=== PATIENT | male | born 1995 | race Caucasian/White ===

== ENCOUNTER 2021-01-23 11:01 | Emergency (ER) | payer SELFPAY ==
--- NOTE | 2021-01-23 11:44 | CR ---
EXAMINATION: Tibia/Fibula Lt 2 views SEX: Male AGE: 25 years CLINICAL HISTORY: 25-year-old male metal cut leg at work. INTERPRETATION: 1. Skin defect consistent with pretibial laceration proximal left lower extremity anteriorly. 2. Overlying foreign bodies consistent with bandage. Dirty and/or tiny metallic fragments in the subcutaneous tissues. 3. No sign of long bone fracture or left knee/ankle joint dislocation. (Stocking artifact distally). 4. No traumatic or inflammatory periostitis.
[2021-01-23] MEDS ORDERED: Lidocaine 2% with EPINEPHrine 1:200,000 20 ML SDV INJECT ONE (12:05)
[2021-01-23] MEDS ORDERED: Bacitracin Oint 1 GM U/D Packet TOP ONE (12:05)
[2021-01-23] MEDS ORDERED: Diphtheria,Pertussis(Acell),Tetanus Vaccine 0.5 ML Syringe IM ONE (12:05)
--- NOTE | 2021-01-23 12:35 | EDM.PDOC ---
ED HPI GENERAL MEDICAL PROBLEM - General Chief Complaint: Lower Extremity Injury/Pain Stated Complaint: INJURED LEG / CONSTRUCTION SITE Time Seen by Provider: 01/23/21 12:05 Source of Information: Reports: Patient History Limitations: Reports: No Limitations - History of Present Illness INITIAL COMMENTS - FREE TEXT/NARRATIVE: This 25 yo male patient reports to the ED with a laceration to his anterior left leg. 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 Today they were loading some metal into a trailer when his boss pushed down on the load causing a door to pop out and hit the patient in the left lower leg. Onset: Today Duration: Minutes: Location: Reports: Lower Extremity, Left Quality: Reports: Ache, Dull Severity: Moderate Improves with: Reports: None Worsens with: Reports: None Context: Reports: Other Associated Symptoms: Reports: No Other Symptoms - Related Data Allergies Allergy/AdvReac Type Severity Reaction Status Date / Time No Known Allergies Allergy Verified 01/23/21 12:15 Past Medical History - Past Health History Medical/Surgical History: Denies Medical/Surgical History Social & Family History - Family History Family Medical History: No Pertinent Family History - Tobacco Use Tobacco Use Status *Q: Never Tobacco User Second Hand Smoke Exposure: No - Caffeine Use Caffeine Use: Reports: None - Recreational Drug Use Recreational Drug Use: No Review of Systems - Review of Systems Review Of Systems: Comprehensive ROS is negative, except as noted in HPI. ED EXAM, GENERAL - Physical Exam Exam: See Below Exam Limited By: Uncooperative General Appearance: Alert, WD/WN, No Apparent Distress Eye Exam: Bilateral Eye: EOMI, Normal Inspection, PERRL Ears: Normal External Exam, Normal Canal, Hearing Grossly Normal, Normal TMs Nose: Normal Inspection, Normal Mucosa, No Blood Throat/Mouth: Normal Inspection, Normal Lips, Normal Teeth, Normal Gums, Normal Oropharynx, Normal Voice, No Airway Compromise Head: Atraumatic, Normocephalic Neck: Normal Inspection, Supple, Non-Tender, Full Range of Motion Respiratory/Chest: No Respiratory Distress, Lungs Clear, Normal Breath Sounds, No Accessory Muscle Use, Chest Non-Tender Cardiovascular: Normal Peripheral Pulses, Regular Rate, Rhythm, No Edema, No Ga llop, No JVD, No Murmur, No Rub GI/Abdominal: Normal Bowel Sounds, Soft, Non-Tender, No Organomegaly, No Distention, No Abnormal Bruit, No Mass (Male) Exam: Deferred Rectal (Males) Exam: Deferred Back Exam: Normal Inspection, Full Range of Motion, NT Extremities: Leg Pain (left anterior lower leg) Neurological: Alert, Oriented, CN II-XII Intact, Normal Cognition, Normal Gait, Normal Reflexes, No Motor/Sensory Deficits Psychiatric: Normal Affect, Normal Mood Skin Exam: Wound/Incision (left lower anterior leg) Lymphatic: No Adenopathy ED TRAUMA EXTREMITY PROCEDURES - Laceration/Wound Repair Left Lower Anterior Leg Lac/Wound Length In cm: 3.0 Appearance: Subcutaneous Distal NVT: Neuro & Vascular Intact Anesthetic Type: Local Local Anesthesia - Lidocaine (Xylocaine): 2% with EPI Local Anesthetic Volume: 5cc Skin Prep: Chlorhexidine (Hibiciens), Saline Exploration/Debridement/Repair: Wound Explored, Foreign Material Removed Closed With: Sutures Suture Size: 4-0 # of Sutures: 10 Suture Type: Prolene, Interrupted, Simple Drain Placement: No Sterile Dressing Applied: Nurse Tetanus Status Addressed: Yes Complications: No Course - Vital Signs Last Recorded V/S: Last Vital Signs Temp 36.2 C 01/23/21 11:29 Pulse 95 01/23/21 11:29 Resp 18 01/23/21 11:29 BP 146/89 H 01/23/21 11:29 Pulse Ox 96 01/23/21 11:29 - Orders/Labs/Meds Orders: Active Orders 24 hr Category Date Time Status Vaccines to be Administered [RC] PER UNIT ROUTINE Care 01/23/21 12:06 Ordered Meds: Medications Discontinued Medications Generic Name Dose Route Start Last Admin Trade Name Jacobo PRN Reason Stop Dose Admin Bacitracin 1 dose 01/23/21 12:05 01/23/21 12:15 Bacitracin Oint 1 Gm U/D Packet TOP 01/23/21 12:06 1 dose ONETIME ONE Administration Diphtheria/Tetanus/Acell Pertussis 0.5 ml 01/23/21 12:05 01/23/21 12:15 Diphtheria,Pertussis(Acell),Tetanus Vaccine 0.5 Ml Syringe IM 01/23/21 12:06 0.5 ml .ONCE ONE Administration Lidocaine/Epinephrine 20 ml 01/23/21 12:05 01/23/21 12:15 Lidocaine 2% With Epinephrine 1:200,000 20 Ml Sdv INJECT 01/23/21 12:06 20 ml ONETIME ONE Administration Departure - Departure Time of Disposition: 12:34 Disposition: Home, Self-Care 01 Condition: Fair Clinical Impression: Laceration of left lower leg Qualifiers: Encounter type: initial encounter Qualified Code(s): S81.812A - Laceration without foreign body, left lower leg, initial encounter - Discharge Information *PRESCRIPTION DRUG MONITORING PROGRAM REVIEWED*: Not Applicable *COPY OF PRESCRIPTION DRUG MONITORING REPORT IN PATIENT ALEXEY: Not Applicable Instructions: Laceration Care, Adult, [id number] Forms: ED Department Discharge Care Plan Goals: The patient was advised of the examination and x-ray results during the visit. The laceration margins were well approximated during the visit. The patient should keep the area clean and dry over the next 24 hours. The patient should have the sutures removed in 10 - 14 days. If the patient has any additional symptoms or concerns, the patient should either return to the emergency department or follow-up with his primary care facility. Sepsis Event Note (ED) - Evaluation Sepsis Screening Result: No Definite Risk - Focused Exam Vital Signs: Vital Signs Temp Pulse Resp BP Pulse Ox 01/23/21 11:29 36.2 C 95 18 146/89 H 96 - My Orders Last 24 Hours: My Active Orders 01/23/21 12:06 Vaccines to be Administered [RC] PER UNIT ROUTINE - Assessment/Plan Last 24 Hours: My Active Orders 01/23/21 12:06 Vaccines to be Administered [RC] PER UNIT ROUTINE
== END 2021-01-23 12:47 | disposition home or self-care (01) ==
LOC: DL.ED 11:01
DX: S81.812A Laceration without foreign body, left lower leg, initial encounter (principal); Z23 Encounter for immunization; W26.8XXA Contact with other sharp object(s), not elsewhere classified, initial encounter; Y99.0 Civilian activity done for income or pay
CPT/HCPCS: 12002; 73590-LT; 90471; 90715; 99283; 99283-25